=== PATIENT | female | born 1975 | race Two or more races ===

== ENCOUNTER 2016-06-14 21:49 | Emergency (ER) | payer OTHER ==
[~2016-06-14] VITALS: Ht 175.3 cm; Wt 104.3 kg
[~2016-06-14 21:49] MED LIST: ALPR1TAB2 PO; EXEN5PEN2 SQ; FERR325C PO; HYDR-3326 PO; LEVO88TA5 PO; METF10002 PO; RANI150T12 PO
[2016-06-14 21:54] VITALS: BP 168/100
[2016-06-14] MEDS ORDERED: ONDANSETRON 4 MG TAB.RAPDIS SL ONE (22:30)
[2016-06-14] MEDS ORDERED: ALPRAZOLAM 0.5 MG TABLET ONE (22:30)
[2016-06-14] MEDS ORDERED: HYDROCODONE/APAP 10/325MG 1 EA TABLET PO ONE (22:30)
[2016-06-14] MEDS ORDERED: ALPRAZOLAM 0.5 MG TABLET PO ONE (22:30)
[2016-06-14] MEDS ORDERED: ONDANSETRON 4 MG TAB.RAPDIS ONE (22:30)
[2016-06-14] MEDS ORDERED: HYDROCODONE/APAP 10/325MG 1 EA TABLET ONE (22:31)
== END 2016-06-14 23:08 | disposition home or self-care (01) ==
LOC: ER 21:49
DX: S92.352A Displaced fracture of fifth metatarsal bone, left foot, initial encounter for closed fracture (principal); S93.492A Sprain of other ligament of left ankle, initial encounter; E11.9 Type 2 diabetes mellitus without complications; K21.9 Gastro-esophageal reflux disease without esophagitis; X58.XXXA Exposure to other specified factors, initial encounter; Y92.89 Other specified places as the place of occurrence of the external cause; Y93.89 Activity, other specified; Y99.8 Other external cause status
CPT/HCPCS: 73610-TC; 73630-TC; A4606; Q0162; Z7610

== ENCOUNTER 2016-08-08 19:41 | Emergency (ER) | payer OTHER ==
[~2016-08-08] VITALS: Ht 172.7 cm; Wt 106.1 kg
[2016-08-08 19:47] VITALS: BP 155/105
== END 2016-08-08 20:12 | disposition home or self-care (01) ==
LOC: ER 19:41
DX: B34.9 Viral infection, unspecified (principal); G40.909 Epilepsy, unspecified, not intractable, without status epilepticus; K21.9 Gastro-esophageal reflux disease without esophagitis; E11.9 Type 2 diabetes mellitus without complications; I67.1 Cerebral aneurysm, nonruptured; Z90.710 Acquired absence of both cervix and uterus
CPT/HCPCS: 99283; A4606; Z7610

== ENCOUNTER 2016-12-25 20:34 | Emergency (ER) | payer OTHER ==
[~2016-12-25] VITALS: Ht 172.7 cm; Wt 105.7 kg
[2016-12-25] MEDS ORDERED: HYDROCODONE/APAP 10/325MG 1 EA TABLET PO ONE (21:30)
--- NOTE | 2016-12-25 21:30 | NUR ---
TO BED 8 A 41 YO FEMALE BIBSELF W C/O LOWER BACK PAIN X 2 DAYS, NAD NOTED, VSS, AMBULATORY. COMFORT MEASURES RENDERED. AWAITING FOR ER MD STEVENS .
[2016-12-25] MEDS ORDERED: HYDROCODONE/APAP 10/325MG 1 EA TABLET ONE (21:35)
--- NOTE | 2016-12-25 21:38 | NUR ---
MEDICATED PATIENT ORDERED BY COLETTE ZHENG.
--- NOTE | 2016-12-25 21:49 | NUR ---
URINE COLLECTED VIA CLEAN CATCH, SENT TO LAB.
[2016-12-25 22:18] LABS: APPEARANCE,URINE SL CLOUDY (CLEAR); BILIRUBIN,URINE NEGATIVE (NEGATIVE); BLOOD, URINE 1+ Ery/uL (NEGATIVE); COLOR,URINE DARK YELLO (YELLOW); KETONES,URINE NEGATIVE (NEGATIVE); LEUKOCYTE ESTERASE ,URINE 1+ (NEGATIVE); NITRITE, URINE POSITIVE (NEGATIVE); PROTEIN,URINE 1+ mg/dl (NEGATIVE); UGLUCOSE NEGATIVE (NEGATIVE)
[2016-12-25 22:30] LABS: BACTERIA,URINE 3+ /HPF (None Seen); MUCUS,URINE Few /LPF (None Seen); SQUAMOUS EPITHELIAL CELL,UR Few /HPF (None Seen); WBC,URINE 25-35 /HPF (0-3)
[2016-12-25 23:33] VITALS: BP 135/100
== END 2016-12-25 23:35 | disposition home or self-care (01) ==
LOC: ER 20:35
DX: N30.80 Other cystitis without hematuria (principal); M54.5 Low back pain; K21.9 Gastro-esophageal reflux disease without esophagitis; E11.9 Type 2 diabetes mellitus without complications; Z86.73 Personal history of transient ischemic attack (TIA), and cerebral infarction without residual deficits; Z90.710 Acquired absence of both cervix and uterus; Z79.84 Long term (current) use of oral hypoglycemic drugs
CPT/HCPCS: 72100; 81001; 84703; 87086; 99285; A4606; Z7610; 81000-TC

== ENCOUNTER 2017-01-20 21:17 | Inpatient (IN) | payer OTHER ==
[~2017-01-20] VITALS: Ht 165.1 cm; Wt 81.6 kg
--- NOTE | 2017-01-20 21:17 | NUR ---
PT BIBRA FROM HOME TO ER BED 10. C/O PRESSURE LIKE CHEST PAIN WORST WHEN TAKING DEEP BREATHS. STARTED AT AROUND 2100. GOWNED AND PLACED ON MONITOR. STABLE VITALS NOTED. AWAITING MD STEVENS.
--- NOTE | 2017-01-20 22:38 | NUR ---
CHRISTOPHER CARPENTER SUPERVISOR WOODEN SHIP AT BEDSIDE FOR EVAL.
--- NOTE | 2017-01-20 22:48 | NUR ---
IV LINE STARTED BLOOD DRAWN AND SENT TO LAB.
[2017-01-20] MEDS ORDERED: ASPIRIN 325 MG TABLET ONE (22:56)
[2017-01-20] MEDS ORDERED: ONDANSETRON HCL/PF 4 MG/2 ML VIAL ONE (22:56)
[2017-01-20] MEDS ORDERED: MORPHINE SULFATE INJ 2 MG/ML DISP.SYRIN IV ONE (23:00)
[2017-01-20] MEDS ORDERED: ONDANSETRON HCL/PF 4 MG/2 ML VIAL IVP ONE (23:00)
[2017-01-20] MEDS ORDERED: IV NS 0.9% 1,000 ML BAG IV ONE (23:00)
[2017-01-20] MEDS ORDERED: ASPIRIN 325 MG TABLET PO ONE (23:00)
[2017-01-20] MEDS ORDERED: MORPHINE SULFATE INJ 10 MG/ML DISP.SYRIN ONE (23:06)
--- NOTE | 2017-01-20 23:07 | NUR ---
RADIOLOGY AT BEDSIDE FOR CHEST XRAY.
[2017-01-20 23:13] LABS: BASOPHILS # (AUTO) 0.1 /CMM (0.0-0.2); BASOPHILS % (AUTO) 0.8 % (0.0-2.0); EOSINOPHILS # (AUTO) 0.2 /CMM (0.0-0.7); HEMATOCRIT 41 % (33-45); HEMOGLOBIN 13.8 g/dL (11.5-14.8); LYMPHOCYTES # (AUTO) 4.5 /CMM (0.8-4.8); LYMPHOCYTES % (AUTO) 39.8 % (20.0-44.0); MEAN CORPUSCULAR HEMOGLOBIN 30 PG (26.0-33.0); MEAN CORPUSCULAR HGB CONC 34 g/dl (31.0-36.0); MEAN CORPUSCULAR VOLUME 88 fL (82-100); MONOCYTES # (AUTO) 0.8 /CMM (0.1-1.30); MONOCYTES % (AUTO) 7.5 % (2.0-12.0); NEUTROPHILS # (AUTO) 5.6 /CMM (1.8-8.9); NEUTROPHILS % (AUTO) 49.9 % (43.0-81.0); PLATELET COUNT (AUTO) 376 /CMM (150-450); RDW COEFFICIENT OF VARIATION 13.2 (11.5-15.0); RED BLOOD CELL COUNT(AUTO) 4.69 MIL/uL (4.0-5.2); WHITE BLOOD COUNT (AUTO) 11.3 K/uL (4.3-11.0)
[2017-01-20 23:14] LABS: APPEARANCE,URINE SL CLOUDY (CLEAR); BILIRUBIN,URINE NEGATIVE (NEGATIVE); BLOOD, URINE 2+ Ery/uL (NEGATIVE); COLOR,URINE YELLOW (YELLOW); KETONES,URINE NEGATIVE (NEGATIVE); LEUKOCYTE ESTERASE ,URINE 2+ (NEGATIVE); NITRITE, URINE NEGATIVE (NEGATIVE); PROTEIN,URINE NEGATIVE (NEGATIVE); UGLUCOSE NEGATIVE (NEGATIVE); UROBILINOGEN,URINE 0.2 EU/dL (0.2)
[2017-01-20 23:21] LABS: BACTERIA,URINE Moderate /HPF (None Seen); SQUAMOUS EPITHELIAL CELL,UR Moderate /HPF (None Seen); WBC,URINE 51-80 /HPF (0-3)
[2017-01-20 23:26] LABS: CALCIUM, SERUM 8.6 mg/dL (8.5-10.1); CARBON DIOXIDE 26 mmol/L (21-32); CHLORIDE 104 mmol/L (98-107); CREATININE 0.8 mg/dL (0.6-1.3); GLUCOSE 207 mg/dL (74-106); SODIUM SERUM 138 mmol/L (136-145); UREA NITROGEN, BLOOD 23 mg/dL (7-18)
[2017-01-20 23:33] LABS: TROPONIN I < 0.017 ng/mL (0.00-0.056)
[2017-01-20 23:35] LABS: D-DIMER 0.37 mg/L(FEU (0.17-0.50); INR 0.91 (0.87-1.13); PROTHROMBIN TIME 9.5 SECS (9.5-12.7)
[2017-01-20 23:41] LABS: ALANINE AMINOTRANSFERASE 22 U/L (12-78); ALBUMIN 3.6 g/dL (3.4-5.0); ALKALINE PHOSPHATASE 92 U/L (46-116); ASPARTATE AMINOTRANSFERASE 9 U/L (15-37); BILIRUBIN,TOTAL 0.1 mg/dL (0.2-1.0); TOTAL PROTEIN, SERUM 7.5 g/dL (6.4-8.2)
[2017-01-21] MEDS ORDERED: CEFTRIAXONE 1 G VIAL IM ONE
[2017-01-21] MEDS ORDERED: NITROGLYCERIN 0.4 MG/TAB BOTTLE SL ONE (00:30)
--- NOTE | 2017-01-21 02:05 | NUR ---
PT ASSIGNED TO [facility] [id number]
[2017-01-21] MEDS ORDERED: CEFTRIAXONE 1GM BAG (ER ONLY) 50 ML IV ONE (02:10)
--- NOTE | 2017-01-21 02:16 | NUR ---
REPORT GIVEN TO KAMILAH MARSHALL FOR TELE BED [id number]
[2017-01-21] MEDS ORDERED: CEFTRIAXONE 1GM BAG (ER ONLY) 1 GM/50 ML PIGGYBACK IV ONE (02:30)
--- NOTE | 2017-01-21 03:30 | NUR ---
RN ADMITTING NOTES RECEIVED REPORT FROM APPLE PRESS OPERATOR GEREMIAS. Pt ARRIVED TO FLOOR VIA GURNEY. WAS ABLE TO AMBULATE FROM ER GURNEY TO ROOM BED WITH STEADY GAIT. NO S/S OF ACUTE DISTRESS OR SOB NOTED. Pt C/O NO CP AT THE MOMENT. ON TELE MONITOR. IV ACCESS ON RFA #20G. SAFETY MEASURES IN PLACE. BED LOW, LOCKED, HOB ELEVATED, SIDE RAILS UP, CALL LIGHT AND BEDSIDE TABLE WITHIN REACH. WILL CONTINUE TO MONITOR Pt THROUGHOUT THE NIGHT FOR SAFETY.
[2017-01-21 03:35] VITALS: BP 94/56
[2017-01-21 04:00] VITALS: BP 92/57
[2017-01-21] MEDS ORDERED: IV NS 0.9% 1,000 ML IV PRN (06:27)
[2017-01-21] MEDS ORDERED: ACETAMINOPHEN 325 MG TABLET PO PRN (06:30)
[2017-01-21] MEDS: CEFTRIAXONE 1 G in IV D5W 50 ML IV SCH (06:30)
[2017-01-21] MEDS ORDERED: ONDANSETRON HCL/PF 4 MG/2 ML VIAL IVP PRN (06:30)
[2017-01-21] MEDS ORDERED: DEXTROSE 50%-WATER 50 ML DISP.SYRIN IV PRN (06:30)
[2017-01-21] MEDS ORDERED: ZOLPIDEM TARTRATE 5 MG TABLET PO PRN (06:30)
--- NOTE | 2017-01-21 06:30 | NUR ---
RN NOTES AC BG 171. NO INSULIN GIVEN AT THIS TIME DUE TO POSSIBLE NPO STATUS FOR CP DX, POSSIBLE STRESS TEST.
--- NOTE | 2017-01-21 06:34 | NUR ---
RN NOTES ROCEPHIN ALREADY GIVEN IN THE ER PRIOR TO ADMISSION TO [facility], [place].
--- NOTE | 2017-01-21 06:40 | NUR ---
RN CLOSING NOTES NO SIGNIFICANT CHANGES IN Pt's CONDITION. Pt REMAINS STABLE AT THIS TIME. NO S/S OF ACUTE DISTRESS OR SOB NOTED. SAFETY MEASURES IN PLACE. ALL NEEDS MET AND ATTENDED TO. WILL ENDORSE TO DAYSHIFT RN FOR Pt's JAZMIN.
--- NOTE | 2017-01-21 07:15 | NUR ---
RN NOTES PT IS IN BED, RESTING COMFORTABLY. PT ON RA, RESPIRATIONS ARE EVEN AND UNLABORED, NO SIGNS OF DISTRESS NOTED. IV ON RFA INTACT AND PATENT, SL. SAFETY MEASURES ARE IN PLACE, CALL LIGHT IS IN REACH. WILL CONTINUE TO MONITOR.
[2017-01-21] MEDS: ENOXAPARIN SODIUM 40 MG/0.4 ML DISP.SYRIN SQ SCH (07:36)
[2017-01-21] MEDS: BLOOD SUGAR DIAGNOSTIC 1 EACH STRIP IN SCH ×4 (07:37→22:16)
[2017-01-21 08:00] VITALS: BP 102/61
[2017-01-21] MEDS ORDERED: CARI350T27 PO (08:30)
[2017-01-21] MEDS ORDERED: LEVO50TA8 PO (08:30)
[2017-01-21] MEDS ORDERED: PROP40TA7 PO (08:30)
[2017-01-21] MEDS ORDERED: METF500T4 PO (08:30)
[2017-01-21] MEDS ORDERED: IBUP-1955 PO (08:30)
[2017-01-21] MEDS ORDERED: OLOP2.5D EACHEYE (08:30)
[2017-01-21] MEDS ORDERED: ASPI-991 PO (08:30)
[2017-01-21] MEDS ORDERED: OMEP40CA37 PO (08:30)
[2017-01-21] MEDS ORDERED: TRAZ-144 PO (08:30)
[2017-01-21] MEDS ORDERED: CITA10TA9 PO (08:30)
[2017-01-21] MEDS ORDERED: LACO100T2 PO (08:30)
[2017-01-21] MEDS: ASPIRIN EC 81 MG TABLET.DR PO SCH (08:41)
[2017-01-21 08:43] LABS: THYROID STIMULATING HORMONE 2.075 uIU/mL (0.358-3.74)
[2017-01-21 09:14] LABS: MAGNESIUM 1.9 mg/dL (1.8-2.4); PHOSPHORUS 3.3 mg/dL (2.5-4.9)
--- NOTE | 2017-01-21 12:14 | NUR ---
RN NOTES PTS 1200 ACCUCHECK WAS 125, NO INSULIN COVERAGE NEEDED.
[2017-01-21 16:00] VITALS: BP 104/62
[2017-01-21] MEDS: IV NS 0.9% 1,000 ML IV PRN (17:19)
--- NOTE | 2017-01-21 18:30 | NUR ---
RN NOTES PT IS LAYING DOWN IN BED, STATING PAIN IN HER CHEST AND BACK. DR. TRAN WAS NOTIFIED FOR PAIN MEDICATION. PT ON RA, RESPIRATIONS ARE EVEN AND UNLABORED. IV ON RFA INTACT AND PATENT, RUNNING NS @ 200ML/HR. ALL MEDS WERE GIVEN ORDERED. CONSENT WAS SIGNED FOR STRESS TEST PLANNED FOR THE MORNING. PT TO BE NPO AT MIDNIGHT. SAFETY MEASURES ARE IN PLACE, CALL LIGHT IS IN REACH. WILL ENDORSE TO PEST CONTROL WORKER RN FOR CONTINUITY OF CARE.
[2017-01-21] MEDS: HYDROCODONE/APAP 5/325MG 1 EACH TABLET PO PRN (18:45)
--- NOTE | 2017-01-21 19:00 | NUR ---
MS RN OPENING NOTES PT IN BED RESTING, PT A/O X 4, NO S/S OF DISTRESS NOTED. BREATHING EVEN AND UNLABORED, SAFETY MEASURES IN PLACE, BED LOCKED AND IN LOWEST POSITION, CALL LIGHT IN REACH. WILL CONTINUE TO MONITOR.
--- NOTE | 2017-01-21 19:16 | NUR ---
patient lives locally with family. She is ambulatory and independent with adl's. Patient pcp is Dr. Ramiro Brand. No dc needs identified at this time. Addendum: 01/21/17 at 1917 by MARILY LOZA RN Amended: Links added.
[2017-01-21 20:00] VITALS: BP 108/70
[2017-01-21] MEDS: INSULIN REGULAR, HUMAN 100 UNIT/ML 3 ML VIAL SQ PRN (22:17)
[2017-01-22] MEDS: IV NS 0.9% 1,000 ML IV PRN (01:40)
[2017-01-22] MEDS: CEFTRIAXONE 1 G in IV D5W 50 ML IV SCH (05:53)
[2017-01-22] MEDS: INSULIN REGULAR, HUMAN 100 UNIT/ML 3 ML VIAL SQ PRN ×2 (05:58→12:10)
[2017-01-22] MEDS: BLOOD SUGAR DIAGNOSTIC 1 EACH STRIP IN SCH ×2 (05:58→12:10)
--- NOTE | 2017-01-22 06:45 | NUR ---
MS RN CLOSING NOTES ASLEEP AND EASILY AWAKEN. HEAD OF BED ELEVATED FOR BETTER LUNG EXPANSION, TOLERATING ROOM AIR 02 SAT 98% RESPIRATIONS EVEN AND UNLABORED. IN STABLE CONDITION NO S/S OF ACUTE DISTRESS, NO COMPLAINS OF PAIN AT THIS TIME. NO COMPLAINS OF CHEST PAIN THROUGHOUT THE SHIFT. AFEBRILE, NURSING CARE RENDERED, NEEDS ATTENDED AND ANTICIPATED, KEPT CLEAN AND DRY AND COMFORTABLE. GOOD SKIN CARE PROVIDED. FREQUENT VISUAL CHECK DONE FOR SAFETY EVERY 2 HOURS. SAFE HAZARD FREE ENVIRONMENT PROVIDED. CALL LIGHT WITHIN EASY TO REACH, ON LOW BED AT ALL TIMES TO ENSURE SAFETY, WILL ENDORSE TO THE NEXT SHIFT CONTINUE PLAN OF CARE.
--- NOTE | 2017-01-22 07:10 | NUR ---
RN NOTES PT IS SITTING UP IN BED, AWAKE AND ALERT. PT ON RA, RESPIRATIONS ARE EVEN AND UNLABORED. IV ON RFA INTACT AND PATENT, SL. PT IS NPO, WAITING FOR STRESS TEST IN AM. SAFETY MEASURES ARE IN PLACE, CALL LIGHT IS IN REACH. WILL CONTINUE TO MONITOR.
[2017-01-22 08:00] VITALS: BP 127/77
[2017-01-22] MEDS ORDERED: REGADENOSON 0.4 MG/5 ML DISP.SYRIN IVP ONE (08:00)
[2017-01-22] MEDS: ASPIRIN EC 81 MG TABLET.DR PO SCH (08:01)
[2017-01-22] MEDS: ENOXAPARIN SODIUM 40 MG/0.4 ML DISP.SYRIN SQ SCH (08:05)
[2017-01-22 08:18] LABS: THYROID STIMULATING HORMONE 1.254 uIU/mL (0.358-3.74)
[2017-01-22] MEDS ORDERED: LOSARTAN POTASSIUM 50 MG TABLET PO SCH (09:00)
[2017-01-22 09:29] VITALS: BP 127/77
[2017-01-22] MEDS: HYDROCODONE/APAP 5/325MG 1 EACH TABLET PO PRN (09:29)
--- NOTE | 2017-01-22 14:10 | NUR ---
RN NOTES PT WAS DISCHARGED HOME IN STABLE CONDITION. IV AND ID BAND WERE REMOVED. BELONGINGS LIST AND DISCHARGE PAPERS WERE SIGNED. PT WAS TOLD TO FOLLOW UP WITH PCP AND PT STATED SHE WOULD MAKE THE APPOINTMENT ON HER OWN.
== END 2017-01-22 15:31 | disposition home or self-care (01) | DRG 392 ==
LOC: ER 21:19 → TELE 01-21 02:39 → MED 01-21 12:35
PROVIDERS: ADMIT Nurse Practitioner Acute Care; ATTEND Nurse Practitioner Acute Care
DX: K21.9 Gastro-esophageal reflux disease without esophagitis (principal); E03.9 Hypothyroidism, unspecified; N39.0 Urinary tract infection, site not specified; E11.9 Type 2 diabetes mellitus without complications; Z86.73 Personal history of transient ischemic attack (TIA), and cerebral infarction without residual deficits; F17.200 Nicotine dependence, unspecified, uncomplicated; Z90.710 Acquired absence of both cervix and uterus; Z79.84 Long term (current) use of oral hypoglycemic drugs
CPT/HCPCS: 36415; 71010-TC; 80048-TC; 80061-TC; 80076-TC; 81000-TC; 82306; 82962-TC; 83605-TC; 83735-TC; 84100-TC; 84439-TC; 84443-TC; 84484-TC; 85025-TC; 85378-TC; 85730-TC; 87040-TC; 87081-TC; 87086-TC; 93307-TC; A9502; J0696; J1650; J1815; J2270; J2405; J2785; J7030; J7060